=== PATIENT | male | born 1950 | race Hispanic/Latino ===

== ENCOUNTER → 2021-12-29 | Outpatient (CLI) | payer MEDICARE ==
[~2021-12-29] MED LIST: AEC81 PO; CALC-1038 PO; CARV25TA77 PO; CHOL500050 PO; DAPA5TAB PO; FENO145T PO; GLYB1TAB3 PO; SACU1TAB7 PO; SITA100T12 PO
== END | disposition home or self-care (01) ==
LOC: RAH 10:25
PROVIDERS: ATTEND Podiatrist
DX: E11.51 Type 2 diabetes mellitus with diabetic peripheral angiopathy without gangrene (principal); E11.9 Type 2 diabetes mellitus without complications; B35.1 Tinea unguium; M79.675 Pain in left toe(s)
CPT/HCPCS: 93922

== ENCOUNTER → 2022-04-25 | Outpatient (CLI) | payer MEDICARE | END | disposition home or self-care (01) | LOC: DAH 10:00 → EDSTATUS 05-01 08:00 | PROVIDERS: ATTEND Internal Medicine Gastroenterology | DX: Z01.818 Encounter for other preprocedural examination (principal); R19.7 Diarrhea, unspecified; R12 Heartburn; Z20.822 Contact with and (suspected) exposure to COVID-19 | CPT/HCPCS: 87426; 93005 ==